=== PATIENT | male | born 1995 | race African-American/Black ===

== ENCOUNTER 2022-03-19 05:02 | Emergency (ER) | payer SELFPAY ==
--- NOTE | ~2022-03-19 | XR_ITS ---
EXAMINATION: XR chest 2V DATE: 03/19/2022 06:35 INDICATION: Cough. TECHNIQUE: Frontal and lateral views of the chest were obtained. COMPARISON: None. FINDINGS: There is mild scarring in right lower lobe. No pleural effusion or pneumothorax. The heart size is normal. There is shrapnel in the chest bilaterally. IMPRESSION: 1. Mild scarring in right lower lobe. 2. Shrapnel in the chest bilaterally. Reviewed, dictated and finalized at location A.
[2022-03-19 05:06] VITALS: BP 107/67; PULSE 79; RESP 18; TEMP 36.4; O2SAT 100
[2022-03-19 05:20] VITALS: RESP 18
--- NOTE | 2022-03-19 05:40 | ED.GENADULT ---
[facility] - General Adult General Chief complaint: Unspecified Stated complaint: weakness, hurting all over Time Seen by Provider: 03/19/22 05:15 Source: patient History of Present Illness HPI narrative: Patient presents with generally not feeling well. Patient ports he feels weak all over and has had decreased appetite reports pain all over. Reports everything he does makes his pain worse. He has a headache that is worsened with bright lights. Symptoms have also been associated with her cough and shortness of breath. Feel like overall his symptoms have been getting worse over the past couple days so he came to the ER for further evaluation. Versus a bowel movement in a couple days he denies focal abdominal pain. Denies any urinary symptoms. Denies any fevers or known sick contacts. Related Data Allergies Allergy/AdvReac Type Severity Reaction Status Date / Time No Known Allergies Allergy Verified 03/19/22 05:08 Review of Systems Review of Systems: CONSTITUTIONAL: Denies fever, chills, or sweats. EYES: Denies visual changes, redness, or discharge. ENT: Denies rhinorrhea, congestion, sore throat, or otalgia. CARDIOVASCULAR: Denies focal chest pain, palpitations, or edema. RESPIRATORY: Reports cough and shortness of breath GASTROINTESTINAL: Denies focal abdominal pain, nausea, vomiting, or diarrhea. GENITOURINARY: Denies dysuria or hematuria. SKIN: Denies rash or itching. MUSCULOSKELETAL: Denies isolated back pain, isolated joint pain NEUROLOGIC: Denies headache, numbness, dizziness, or weakness. All systems reviewed & are unremarkable except as noted in HPI and below Exam Narrative: GENERAL: Well-appearing, well-nourished, and in no acute distress. HEAD: Normocephalic, atraumatic. EYES: PERRLA and EOMI. ENT: Nares clear, no rhinorrhea or epistaxis. Mucous membranes moist. NECK: Supple. No masses. No JVD CHEST: Clear to auscultation. No respiratory distress. No wheezes rales or rhonchi HEART: Regular rate and rhythm. No murmur heard. Normal peripheral pulses. ABDOMEN: Soft, nontender, nondistended, normal active bowel sounds. EXTREMITIES: Normal range of motion. No edema. SKIN: Warm, dry, no rash. NEURO: No focal deficits. Alert and oriented x3. PSYCH: Normal mood and affect. Course Reevaluation(s) Reevaluation #1: Patient is resting comfortably reports feeling somewhat improved results and plan reviewed with patient. Patient is comfortable with outpatient plan. Date: 03/19/22 Time: 07:07 Vital Signs Vital signs: Vital Signs Temperature 36.4 C 03/19/22 05:06 Pulse Rate 79 03/19/22 05:06 Respiratory Rate 18 03/19/22 05:06 Blood Pressure 107/67 03/19/22 05:06 Pulse Oximetry 100 03/19/22 05:06 Oxygen Delivery Room Air 03/19/22 05:06 Temperature 36.4 C 03/19/22 05:06 Pulse Rate 64 03/19/22 06:15 Respiratory Rate 16 03/19/22 06:15 Blood Pressure 115/80 03/19/22 06:15 Pulse Oximetry 98 03/19/22 06:15 Oxygen Delivery Room Air 03/19/22 05:06 Medical Decision Making MDM Narrative Medical decision making narrative: H&P as above, vss, pt looks clinically well, exam with clear lungs and nonacute abdomen, labs with UA with elevated WBCs otherwise labs clinically unremarkable img without acute process and has some retained foreign bodies patient is already aware additional labs/img considered, symptomatic relief available as needed, on reevaluation pt continues to looks clinically well. Discussed UA findings with the patient he prefers to wait on culture results as he does not have any symptoms. Symptoms do remain of unclear etiology may represent a viral process, dns severe sepsis, severe dehydration, severe electrolyte abnormality, pneumonia. plan to tx/monitor as op w/ pcm f/u findings/plan discussed with pt, pt agree/comfortable with plan, return precautions given Vital Signs Vital Signs: Vital Signs Temperature 36.4 C 03/19/22 05:06 Pulse Rate 79 03/19/22 05:0
[2022-03-19] MEDS: KETOROLAC 15 MG/ML VIAL (*BKC) IV PUSH (05:46)
[2022-03-19] MEDS: SODIUM CHLORIDE 0.9% IV 1,000 ML 999 ML IV CONT (05:46)
[2022-03-19 06:06] LABS: Basophils Percent Auto 0.5 % (0.2-1.2); Eosinophils Absolute Auto 0.1 K/mm3 (0-0.3); Eosinophils Percent Auto 1.7 % (0-4.4); Hematocrit 47.3 % (42.0-52.0); Hemoglobin 16.4 g/dL (14.0-18.0); Immature Granulocyte Absolute 0.01 K/mm3 (0.00-0.031); Immature Granulocyte Percent A 0.2 % (0-0.5); Lymphocytes Absolute Auto 1.92 K/mm3 (0.9-3.2); Lymphocytes Percent Auto 30.5 % (18.3-44.2); Mean Corpuscular HGB Conc 34.7 g/dl (32-36); Mean Corpuscular Hemoglobin 33.5 pg (26-34); Mean Corpuscular Volume 96.5 fl (80-100); Mean Platelet Volume 9.6 fl (7.4-10.4); Monocytes Absolute Auto 0.8 K/mm3 (0.1-0.6); Monocytes Percent Auto 12.5 % (2.6-8.5); Neutrophils Absolute Auto 3.4 K/mm3 (1.3-6.7); Neutrophils Percent Auto 54.6 % (45.5-73.1); Platelet Count Result 322 k/mm3 (150-375); Red Cell Distribution Width 12.5 % (11.5-14.5); White Blood Count 6.3 K/mm3 (4.5-10.0)
[2022-03-19 06:15] VITALS: BP 115/80; PULSE 64; RESP 16; O2SAT 98
[2022-03-19 06:16] LABS: Appearance Urine Clear (Clear); Bilirubin Urine 1+ (Negative); Blood Urine Negative (Negative); Color Urine Yellow (Yellow); Glucose Urine UA Negative (Negative); Ketones Urine Trace mg/dL (Negative); Leukocyte Esterase Ur Negative LEU/UL (Negative); Nitrate Urine Negative (Negative); Protein Urine 1+ mg/dL (Negative)
[2022-03-19 06:20] LABS: Alanine Aminotransferase 16 U/L (6-50); Albumin Level 4.8 g/dL (3.5-5.1); Alkaline Phosphatase 67 U/L (38-126); Anion Gap 7 mmol/L (8-16); Aspartate Amino Transferase 24 U/L (17-59); Bilirubin,Total 1.5 mg/dL (0.2-1.3); Blood Urea Nitrogen 12 mg/dL (9-20); Calcium 9.1 mg/dL (8.4-10.2); Carbon Dioxide 25 mmol/L (22-30); Chloride 104 mmol/L (98-107); Estimated CRCL calculation 124 ml/min; Estimated Glomerular Filt Rate > 60; Glucose 95 mg/dL (65-110); Lipase 39 U/L (23-300); Potassium 3.8 mmol/L (3.4-5.0); Sodium 136 mmol/L (137-145)
[2022-03-19 06:23] LABS: Mucus Urine Rare /lpf; WBC Urine 21-30 /hpf
[2022-03-19 06:34] LABS: Add Urine Microscopic? YES
[2022-03-19 06:43] LABS: SARS-CoV-2 RNA PCR Negative
== END 2022-03-19 07:35 | disposition home or self-care (01) ==
PROVIDERS: Emergency Provider Emergency Medicine
DX: R53.81 Other malaise (principal); Z20.822 Contact with and (suspected) exposure to COVID-19; M79.5 Residual foreign body in soft tissue
CPT/HCPCS: 36415; 71046; 80053; 81001; 83690; 85025; 87086; 87491; 87591; 96365; 96375; 99284; C9803; J0131; J1885; J7030; U0003; U0005